=== PATIENT | male | born 1955 | race Caucasian/White ===

== ENCOUNTER → 2025-02-04 | Outpatient (CLI) | payer MEDICARE, MEDICAID ==
[~2025-02-04] MED LIST: ISOVUE-370 76% 100 ML VIAL As Ordered ONE
== END ==
LOC: M RAD 08:51
PROVIDERS: ATTEND Surgery
DX: R10.13 Epigastric pain (principal)
CPT/HCPCS: 74177; Q9967

== ENCOUNTER 2025-03-19 10:54 | Day surgery (SDC) | payer MEDICARE, MEDICAID ==
[~2025-03-19] VITALS: Ht 170.2 cm; Wt 97.9 kg
[~2025-03-19 10:54] MED LIST changes: +AMLO1TAB24 PO; +ATOR1TAB21 PO; +COLA100C5 PO; -ISOVUE-370 76% 100 ML VIAL As Ordered ONE; +LISI40TA10 PO; +OMEP-173 PO; +SEMA3TAB4 PO; +VITA100093 PO
[2025-03-19] MEDS: LR 1,000 ML IV SCH (11:40)
[2025-03-19 12:10] LABS: CALCIUM LEVEL 9.6 MG/DL (8.3-10.6); CARBON DIOXIDE LEVEL 27 MMOL/L (20-31); CHLORIDE LEVEL 103 MMOL/L (98-107); CREATININE FOR GFR 0.86 MG/DL (0.70-1.30); GLOMERULAR FILTRATION RATE > 90.0 (>42); POTASSIUM SERUM 4.3 MMOL/L (3.5-5.1); SODIUM LEVEL 140 MMOL/L (136-145)
[2025-03-19] MEDS ORDERED: MIDAZOLAM INJ 2 MG/2 ML VIAL As Ordered ONE (12:38)
[2025-03-19] MEDS ORDERED: SUGAMMADEX SODIUM 500 MG/5 ML VIAL As Ordered ONE (12:40)
[2025-03-19] MEDS ORDERED: ROCURONIUM BROMIDE 50MG/5ML VIAL As Ordered ONE (12:40)
[2025-03-19] MEDS ORDERED: LIDOCAINE 2% 100 MG/5 ML SDV (FOR ANES.) As Ordered ONE (12:40)
[2025-03-19] MEDS ORDERED: dexAMETHasone 4 MG/ML 1 ML VIAL As Ordered ONE (12:42)
[2025-03-19] MEDS ORDERED: KETOROLAC 30 MG/ML 1 ML VIAL As Ordered ONE (12:42)
[2025-03-19] MEDS ORDERED: ONDANSETRON 4MG/2ML VIAL As Ordered ONE (12:42)
[2025-03-19] MEDS: HEPARIN SOD 5000 UNITS/ML 1 ML VIAL/SYRINGE As Ordered ONE (13:10)
[2025-03-19] MEDS ORDERED: PHENYLephrine 500MCG 5ML (100MCG/ML) SYRINGE As Ordered ONE (13:11)
[2025-03-19] MEDS ORDERED: MORPHINE 4 MG/ML 1 ML VIAL IV PRN (14:55)
[2025-03-19] MEDS ORDERED: ONDANSETRON 4MG/2ML VIAL IV PRN (14:55)
[2025-03-19] MEDS ORDERED: HYDR-3713 PO (15:18)
[2025-03-19 15:59] VITALS: BP 135/86; TEMP 97.8; O2SAT 96
== END 2025-03-19 16:50 | disposition home or self-care (01) ==
LOC: M SDC 10:54
PROVIDERS: ATTEND Surgery
DX: K43.9 Ventral hernia without obstruction or gangrene (principal); I10 Essential (primary) hypertension; E78.5 Hyperlipidemia, unspecified; K21.9 Gastro-esophageal reflux disease without esophagitis; Z79.899 Other long term (current) drug therapy; Z87.891 Personal history of nicotine dependence
CPT/HCPCS: 36415; 49593; 80048; C1781; J0665; J0688; J1100; J1885; J2250; J2371; J2405; J2765; J3010; S2900